=== PATIENT | female | born 1960 | race Caucasian/White ===

== ENCOUNTER 2017-05-27 15:42 | Inpatient (IN) | payer BC ==
[~2017-05-27] VITALS: Ht 152.4 cm; Wt 46.4 kg
--- NOTE | 2017-05-27 15:45 | NUR ---
LEFT FOOT INFECTION. SEND BY Jean HILLMAN
--- NOTE | 2017-05-27 16:26 | NUR ---
LAC #20 IV ACCESS. BLOOD SAMPLE COLLECTED SENT TO LAB
[2017-05-27 16:30] LABS: BASOPHILS # (AUTO) 0.2 /CMM (0.0-0.2); BASOPHILS % (AUTO) 2.5 % (0.0-2.0); EOSINOPHILS # (AUTO) 0.1 /CMM (0.0-0.7); EOSINOPHILS % (AUTO) 1.4 % (0.0-6.0); HEMATOCRIT 35 % (33-45); HEMOGLOBIN 11.8 g/dL (11.5-14.8); LYMPHOCYTES # (AUTO) 1.7 /CMM (0.8-4.8); MEAN CORPUSCULAR HEMOGLOBIN 32 PG (26.0-33.0); MEAN CORPUSCULAR HGB CONC 34 g/dl (31.0-36.0); MEAN CORPUSCULAR VOLUME 93 fL (82-100); MONOCYTES # (AUTO) 0.4 /CMM (0.1-1.30); MONOCYTES % (AUTO) 6.9 % (2.0-12.0); NEUTROPHILS # (AUTO) 3.8 /CMM (1.8-8.9); NEUTROPHILS % (AUTO) 62.2 % (43.0-81.0); PLATELET COUNT (AUTO) 440 /CMM (150-450); RDW COEFFICIENT OF VARIATION 11.6 (11.5-15.0); RED BLOOD CELL COUNT(AUTO) 3.71 MIL/uL (4.0-5.2); WHITE BLOOD COUNT (AUTO) 6.2 K/uL (4.3-11.0)
[2017-05-27] MEDS ORDERED: VANCOMYCIN 1 GM in IV D5W 250 ML IV ONE (16:30)
[2017-05-27] MEDS ORDERED: CEPH-570 PO (16:30)
[2017-05-27] MEDS ORDERED: HYDR-548 PO (16:30)
[2017-05-27] MEDS ORDERED: PIPERACILLIN /TAZOBACTAM 3.375 G in IV D5W 50 ML IV ONE (16:30)
--- NOTE | 2017-05-27 16:30 | NUR ---
CALLED FOR FOOD TRAY
[2017-05-27 16:38] LABS: CALCIUM, SERUM 9.2 mg/dL (8.5-10.1); CREATININE 0.7 mg/dL (0.6-1.3); POTASSIUM 3.4 mmol/L (3.5-5.1)
[2017-05-27 16:41] LABS: INR 0.88 (0.85-1.15)
--- NOTE | 2017-05-27 16:45 | NUR ---
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
--- NOTE | 2017-05-27 17:11 | NUR ---
PAGED EPIC FOR PANEL
--- NOTE | 2017-05-27 19:38 | NUR ---
CALLED NURSE SUP AGAIN FOR MEDSURG BED
--- NOTE | 2017-05-27 19:48 | NUR ---
[address] [facility]
--- NOTE | 2017-05-27 19:59 | NUR ---
report given to Jocelyn Valladares for cont of care
--- NOTE | 2017-05-27 20:06 | NUR ---
MS/RN NOTES RECEIVED PT. FROM ER VIA WHEELCHAIR. PT. IS AWAKE, ALERT AND ORIENTED X4. BREATHING EVEN AND UNLABORED ON ROOM AIR. NO SOB, RESPIRATORY DISTRESS OR COMPLAINTS OF PAIN NOTED AT THIS TIME. ORIENTED PT. TO ROOM. PT. WITH LEFT AC 20 GAUGE IV SALINE LOCK PRESENT, PATENT AND INTACT. BED LOCKED AND IN LOWEST POSITION, SIDE RAILS UP X2, CALL LIGHT WITHIN REACH, WILL CONTINUE TO MONITOR.
[2017-05-27 20:30] VITALS: BP 115/83
[2017-05-27] MEDS ORDERED: ZOLPIDEM TARTRATE 5 MG TABLET PO PRN (20:30)
[2017-05-27] MEDS ORDERED: Z GUARD REMEDY 2 OZ OINT TP PRN (20:30)
[2017-05-27] MEDS ORDERED: ONDANSETRON HCL/PF 4 MG/2 ML VIAL IVP PRN (20:30)
[2017-05-27] MEDS ORDERED: ACETAMINOPHEN 325 MG TABLET PO PRN (20:30)
[2017-05-27] MEDS ORDERED: MAGNESIUM HYDROXIDE 30 ML UDC PO PRN (20:30)
[2017-05-27] MEDS ORDERED: POTASSIUM CHLORIDE 20 MEQ TAB.PRT.SR PO ONE (20:30)
[2017-05-27] MEDS ORDERED: FEE PK DOSING 1 MIN EA MC ONE (20:57)
[2017-05-28] MEDS ORDERED: PIPERACILLIN /TAZOBACTAM 3.375 G VIAL IV ONE (00:21)
[2017-05-28] MEDS: PIPERACILLIN /TAZOBACTAM 3.375 G in IV D5W 50 ML IV SCH ×5 (00:32→23:30)
--- NOTE | 2017-05-28 06:14 | NUR ---
MS/RN NOTES PT. IS LYING IN BED RESTING. BREATHING EVEN AND UNLABORED ON ROOM AIR. NO SOB, RESPIRATORY DISTRESS OR COMPLAINTS OF PAIN NOTED AT THIS TIME. PT. WITH LEFT FOREARM 20 GAUGE IV SALINE LOCK PRESENT, PATENT AND INTACT. ALL PT. NEEDS MET. ALL DUE MEDICATIONS GIVEN. BED LOCKED AND IN LOWEST POSITION, SIDE RAILS UP X2, CALL LIGHT WITHIN REACH, WILL ENDORSE TO DAYSHIFT NURSE FOR CONTINUITY OF CARE.
[2017-05-28] MEDS: VANCOMYCIN 0.75 GM in IV D5W 250 ML IV SCH ×2 (06:41→19:02)
[2017-05-28 06:43] LABS: BASOPHILS % (AUTO) 0.5 % (0.0-2.0); EOSINOPHILS # (AUTO) 0.2 /CMM (0.0-0.7); EOSINOPHILS % (AUTO) 3.9 % (0.0-6.0); HEMATOCRIT 37 % (33-45); HEMOGLOBIN 12.4 g/dL (11.5-14.8); LYMPHOCYTES # (AUTO) 1.5 /CMM (0.8-4.8); LYMPHOCYTES % (AUTO) 31.6 % (20.0-44.0); MEAN CORPUSCULAR HEMOGLOBIN 33 PG (26.0-33.0); MEAN CORPUSCULAR HGB CONC 34 g/dl (31.0-36.0); MEAN CORPUSCULAR VOLUME 97 fL (82-100); MONOCYTES # (AUTO) 0.5 /CMM (0.1-1.30); MONOCYTES % (AUTO) 10.4 % (2.0-12.0); NEUTROPHILS # (AUTO) 2.6 /CMM (1.8-8.9); NEUTROPHILS % (AUTO) 53.6 % (43.0-81.0); PLATELET COUNT (AUTO) 366 /CMM (150-450); RDW COEFFICIENT OF VARIATION 12.7 (11.5-15.0); RED BLOOD CELL COUNT(AUTO) 3.76 MIL/uL (4.0-5.2); WHITE BLOOD COUNT (AUTO) 4.8 K/uL (4.3-11.0)
[2017-05-28 06:54] LABS: CALCIUM, SERUM 8.8 mg/dL (8.5-10.1); CREATININE 0.8 mg/dL (0.6-1.3); MAGNESIUM 2.2 mg/dL (1.8-2.4); POTASSIUM 4.2 mmol/L (3.5-5.1)
[2017-05-28 08:00] VITALS: BP 112/72
[2017-05-28 16:00] VITALS: BP 108/75
--- NOTE | 2017-05-28 18:00 | NUR ---
ARY CULVER,PITER IN TO SEE PT.WD CULTURE DONE OF LT. FOOT.CONSENT SIGNED FOR SURGERY TOMORROW.
[2017-05-28] MEDS: HYDROCODONE/APAP 5/325MG 1 EACH TABLET PO PRN ×2 (18:06→23:30)
--- NOTE | 2017-05-28 19:00 | NUR ---
MEDICATED X 1 FOR BACK PAIN,UP AND ABOUT IN RM. FREQ.FAMILY MEMBER IN TO VISIT.
--- NOTE | 2017-05-28 19:30 | NUR ---
MS RN OPENING NOTES: PATIENT IN BED, AOX4, ON ROOM AIR, BREATHING EVEN AND UNLABORED. APPEARS CALM AND IN NO DISTRESS. DENIES PAIN AT THIS TIME, BUT DOES COMPLAIN OF SORENESS OVER LFA PIV. NOTED PIV OVER LFA G 20 WITH SOME REDNESS AND ALSO APPEARS TO BEGIN TO SWELL, CURRENTLY INFUSING WITH VANCOMYCIN. STOPPED IV ATB FOR NOW. REMOVED PIV. PROVIDED FOR COMFORT AND SAFETY. BED IN LOWEST AND LOCKED POSITION, SIDERAILS UP X 3, CALL LIGHT WITHIN REACH. WILL CONT TO MONITOR.
[2017-05-28 20:00] VITALS: BP 111/64
--- NOTE | 2017-05-28 21:48 | NUR ---
RN NOTES: REINSERTED NEW IV LINE OVER LEFT WRIST G20, INTACT AND PATENT TO FLUSH, WITH GOOD BLOOD RETURN. CONTINUED WITH IV ATB.
--- NOTE | 2017-05-28 23:35 | NUR ---
RN NOTES: PT COMLPAINED OF PAIN OVER LEFT WRIST SCALED AT 7/10. PIV IS INTACT, WITH GOOD BLOOD RETURN. PATIENT DENIES WORSENING PAIN WHILE FLUSHED. NO SWELLING OR REDNESS NOTED. ADMINISTERED NORCO 5-325 MG PO AT THIS TIME. REMINDED PATIENT TO BE NPO POST MN. WILL CONT TO MONITOR.
[2017-05-29] MEDS: PIPERACILLIN /TAZOBACTAM 3.375 G in IV D5W 50 ML IV SCH ×3 (05:16→18:14)
[2017-05-29 06:32] LABS: CALCIUM, SERUM 8.6 mg/dL (8.5-10.1)
--- NOTE | 2017-05-29 06:54 | NUR ---
MS RN CLOSING NOTES: PATIENT IN BED, AOX4, ON ROOM AIR, BREATHING EVEN AND UNLABORED. APPEARS CALM AND IN NO DISTRESS. PIV OVER LEFT WRIST G22, INTACT AND PATENT TO FLUSH. PROVIDED FOR COMFORT AND SAFETY. BED IN LOWEST AND LOCKED POSITION, SIDERAILS UP X 3, CALL LIGHT WITHIN REACH. MAINTAINED ON NPO AFTER MIDNIGHT FOR DEBRIDEMENT OF WOUND AT LEFT FOOT AT 1330 PM TODAY. STILL AWAITING FOR RESULT OF VANCO TROUGH BEFORE GIVING VANCO 750 MG IV SCHEDULED AT 0600 AM. WILL ENDORSE TO AM RN FOR JENNA.
--- NOTE | 2017-05-29 07:28 | NUR ---
RN NOTES: VANCO TROUGH RESULT NOT AVAILABLE YET, ENDORSED VANCO IV TO LESLIE JIMENEZ.
--- NOTE | 2017-05-29 07:30 | NUR ---
RECEIVED PT. IN AM ALERT AND ORIENTED X4.NPO FOR SURGERY.
[2017-05-29] MEDS: VANCOMYCIN 0.75 GM in IV D5W 250 ML IV SCH ×2 (07:47→19:00)
[2017-05-29 08:00] VITALS: BP 109/69
--- NOTE | 2017-05-29 08:30 | NUR ---
C/O IV SITE SORENESS,REMOVED AND IV RESTART RT. FOREARM #22.PT.TOLERATED WELL.
--- NOTE | 2017-05-29 11:05 | NUR ---
WOUND CARE CONSULT: PT BEING TAKEN TO O.R. AT THIS TIME. WILL SEE PT NEEDED.
--- NOTE | 2017-05-29 11:10 | NUR ---
DR. ORTIZ SAW PT. SHE IS BEING WHEELED TO OR.
[2017-05-29] MEDS ORDERED: BACITRACIN 50000 UNITS/VIAL ONE (12:04)
--- NOTE | 2017-05-29 13:10 | NUR ---
RETURNED FROM SURGERY VS STABLE.FOOT SNUGLY WRAPPED AND DRY. NO DRAINAGE NOTED. FOOT WARM AND DENIES NUMBNESS OR TINGLING. INSTRUCTED TO CALL FOR BATHROOM NEEDS. POST-OP SHOE ORDERED AND PLACED. NO WT BEARING INSTRUCTIONS GIVEN TO PT.LT. FOOT ELEVATED ON PILLOW.IV SITE INTACT.
--- NOTE | 2017-05-29 13:40 | NUR ---
VANCE MCADAMS PT. WAS IN OR AT TIME MED WAS DUE.
[2017-05-29] MEDS: HYDROCODONE/APAP 5/325MG 1 EACH TABLET PO PRN (15:36)
--- NOTE | 2017-05-29 15:36 | NUR ---
MEDICATED FOR PAIN WITH NORCO MED.
[2017-05-29 16:00] VITALS: BP 106/58
[2017-05-29] MEDS ORDERED: HYDROCODONE/APAP 10/325MG 1 EA TABLET PO PRN (16:30)
--- NOTE | 2017-05-29 16:30 | NUR ---
PT. DECIDED SHE WANTS TO GO HOME.DR. ORTIZ CALLED. AWARE RN TO ADMINISTER ZOSYN AND VANCO PRIOR TO DC. TO ORDER ORAL ANTIBIOTICS FOR PT.FOR DISCHARGE.
[2017-05-29] MEDS ORDERED: LINE600T2 PO (17:47)
--- NOTE | 2017-05-29 19:00 | NUR ---
[facility] ADM. AT THIS TIME-PT. STILL PLANS TO GO HOME THIS YAIMA.DR. ORTIZ DROPPED OFF ZYVOX DC PRESCRIPTION.EXIT CARE STARTED.PT. DID VOID SINCE RETURN FROM OR. DENIES N/TINGLING TO LT. FOOT.
--- NOTE | 2017-05-29 19:40 | NUR ---
MS/RN OPENING NOTES PT RECEIVED AWAKE, SITTING UP IN BED. A/OX4. ON ROOM AIR, BREATHING EVEN AND UNLABORED. NO SOB OR PAIN NOTED AT THIS TIME. DRESSING TO LEFT FOOT IN PLACED WITH BOOT ON. NWB TO LEFT LEG. IV TO LEFT WRIST PATENT AND INTACT. VANCO CURRENTLY INFUSING. PT TO BE DISCHARGED ONCE VANCO IS COMPLETED. EXIT CARE PRINTED. PT AWARE OF DISCHARGE, FRIEND WILL BE PICKIING HER UP AROUND 2100. BED IN LOW/LOCKED POSITION WITH CALL LIGHT IN REACH. SIDE RAILS UPX2. WILL CONTINUE TO MONITOR
[2017-05-29 20:00] VITALS: BP 99/66
--- NOTE | 2017-05-29 21:20 | NUR ---
MS/RN NOTES PT LEFT UNIT VIA WHEELCHAIR ACCOMPANIED BY FRIEND AND TRANSFER AND PUMPHOUSE OPERATOR CHIEF. IV REMOVED. ID BANDS REMOVED. DISCHARGE PAPERWORK, HOME MEDICATIONS, ZYVOX PRESCRIPTION AND BELONGINGS ALL REVIEWED AND SENT HOME WITH PT. BOOT TO LEFT FOOT IN PLACE WITH DRESSING. ENCOURAGED NWB TO LEFT LEG. PT VERBALIZED UNDERSTANDING. PT LEFT IN STABLE CONDITION. NO S/S OF DISTRESS.
== END 2017-05-29 21:20 | disposition home or self-care (01) | DRG 988 ==
LOC: ER 15:46 → MED 19:51
PROVIDERS: ADMIT Nurse Practitioner Acute Care; ATTEND Nurse Practitioner Acute Care
PROC: 0QBP0ZZ Excision of Left Metatarsal, Open Approach (ICD-10-PCS; principal; 2017-05-29 11:30)
DX: L03.116 Cellulitis of left lower limb (principal); L02.612 Cutaneous abscess of left foot; L97.509 Non-pressure chronic ulcer of other part of unspecified foot with unspecified severity; S91.109A Unspecified open wound of unspecified toe(s) without damage to nail, initial encounter; Y92.009 Unspecified place in unspecified non-institutional (private) residence as the place of occurrence of the external cause; X58.XXXA Exposure to other specified factors, initial encounter
CPT/HCPCS: 36415; 71045-TC; 73630-TC; 80048-TC; 80061-TC; 80202-TC; 83605-TC; 83735-TC; 84100-TC; 85025-TC; 85730-TC; 86850-TC; 87040-TC; 87070-TC; 87075-TC; 87081-TC; 87186-TC; A4606; A6402; A6407; J2543; J3370; J7050; J7060; Z7610

== ENCOUNTER 2017-05-31 09:43 | Outpatient (CLI) | payer BC ==
[~2017-05-31 09:43] MED LIST: HYDR-548 PO; LINE600T2 PO
== END 2017-05-31 23:59 | disposition home health service (06) ==
LOC: WOU 09:43
PROVIDERS: ATTEND Podiatrist Foot & Ankle Surgery
DX: T81.4XXA Infection following a procedure, initial encounter (principal); L03.116 Cellulitis of left lower limb; B95.8 Unspecified staphylococcus as the cause of diseases classified elsewhere; R60.0 Localized edema; Z83.3 Family history of diabetes mellitus
CPT/HCPCS: A6402; A6407; G0463; J3490

== ENCOUNTER 2017-06-04 14:00 | Outpatient (CLI) | payer BC | END 2017-06-04 23:59 | disposition home health service (06) | LOC: WOU 14:00 | PROVIDERS: ATTEND Podiatrist Foot & Ankle Surgery | DX: T81.89XA Other complications of procedures, not elsewhere classified, initial encounter (principal); R60.0 Localized edema; M79.672 Pain in left foot | CPT/HCPCS: 11042; A6402 ×2; A6407 ==

== ENCOUNTER 2017-06-11 13:26 | Outpatient (CLI) | payer BC | END 2017-06-11 23:59 | disposition home health service (06) | LOC: WOU 13:26 | PROVIDERS: ATTEND Podiatrist Foot & Ankle Surgery | DX: T81.89XA Other complications of procedures, not elsewhere classified, initial encounter (principal); R60.0 Localized edema; L03.116 Cellulitis of left lower limb | CPT/HCPCS: 11043; A6402 ==

== ENCOUNTER 2017-07-02 14:20 | Outpatient (CLI) | payer BC | END 2017-07-02 23:59 | disposition home health service (06) | LOC: WOU 14:20 | PROVIDERS: ATTEND Podiatrist Foot & Ankle Surgery | DX: T81.89XA Other complications of procedures, not elsewhere classified, initial encounter (principal); L97.522 Non-pressure chronic ulcer of other part of left foot with fat layer exposed | CPT/HCPCS: 11042; A6402 ==

== ENCOUNTER 2017-07-09 14:10 | Outpatient (CLI) | payer BC | END 2017-07-09 23:59 | disposition home or self-care (01) | LOC: WOU 14:10 | PROVIDERS: ATTEND Podiatrist Foot & Ankle Surgery | DX: T81.89XA Other complications of procedures, not elsewhere classified, initial encounter (principal) | CPT/HCPCS: 11042; 87070-TC; 87075-TC; 87186-TC; A6402 ==

== ENCOUNTER 2017-07-16 14:30 | Outpatient (CLI) | payer BC | END 2017-07-16 23:59 | disposition home or self-care (01) | LOC: WOU 14:30 | PROVIDERS: ATTEND Podiatrist Foot & Ankle Surgery | DX: T81.89XA Other complications of procedures, not elsewhere classified, initial encounter (principal); L03.116 Cellulitis of left lower limb; B96.89 Other specified bacterial agents as the cause of diseases classified elsewhere; R60.9 Edema, unspecified | CPT/HCPCS: 11042; A6402 ==

== ENCOUNTER 2017-07-24 09:15 | Outpatient (CLI) | payer BC | END 2017-07-24 23:59 | disposition home or self-care (01) | LOC: WOU 09:15 | PROVIDERS: ATTEND Podiatrist Foot & Ankle Surgery | DX: T81.89XA Other complications of procedures, not elsewhere classified, initial encounter (principal); M20.40 Other hammer toe(s) (acquired), unspecified foot; R60.9 Edema, unspecified; M21.629 Bunionette of unspecified foot | CPT/HCPCS: 11042; A6402 ==

== ENCOUNTER 2017-08-06 11:15 | Outpatient (CLI) | payer BC | END 2017-08-06 23:59 | disposition home or self-care (01) | LOC: WOU 11:15 | PROVIDERS: ATTEND Podiatrist Foot & Ankle Surgery | DX: Z09 Encounter for follow-up examination after completed treatment for conditions other than malignant neoplasm (principal); L84 Corns and callosities; R60.0 Localized edema; M79.672 Pain in left foot | CPT/HCPCS: 99213; A6402; G0463 ==

== ENCOUNTER 2017-09-04 15:23 | Outpatient (CLI) | payer BC | END 2017-09-04 23:59 | disposition home or self-care (01) | LOC: WOU 15:23 | PROVIDERS: ATTEND Podiatrist Foot & Ankle Surgery | DX: L84 Corns and callosities (principal); M89.9 Disorder of bone, unspecified; M20.42 Other hammer toe(s) (acquired), left foot | CPT/HCPCS: G0463 ==

== ENCOUNTER → 2017-11-22 | Outpatient (CLI) | payer BC | END | disposition home or self-care (01) | LOC: WOU 08:00 | PROVIDERS: ATTEND Podiatrist Foot & Ankle Surgery | DX: L84 Corns and callosities (principal); R60.0 Localized edema | CPT/HCPCS: 99213; Z7610; G0463 ==

== ENCOUNTER 2018-03-14 08:20 | Outpatient (CLI) | payer BC ==
[~2018-03-14 08:20] MED LIST changes: +HYDR-4354 PO; -HYDR-548 PO
== END 2018-03-14 23:59 | disposition home or self-care (01) ==
LOC: WOU 08:20
PROVIDERS: ATTEND Podiatrist Foot & Ankle Surgery
DX: M20.5X2 Other deformities of toe(s) (acquired), left foot (principal); M89.9 Disorder of bone, unspecified; M79.675 Pain in left toe(s)
CPT/HCPCS: 99213; A6402; Z7610; G0463

== ENCOUNTER 2018-04-25 10:30 | Outpatient (CLI) | payer BC | END 2018-04-25 23:50 | disposition home or self-care (01) | LOC: WOU 10:30 | PROVIDERS: ATTEND Podiatrist Foot & Ankle Surgery | PROC: 0HBNXZZ Excision of Left Foot Skin, External Approach (ICD-10-PCS; principal; 2018-04-25) | DX: M21.622 Bunionette of left foot (principal); M21.621 Bunionette of right foot; M20.40 Other hammer toe(s) (acquired), unspecified foot; M79.675 Pain in left toe(s); L84 Corns and callosities | CPT/HCPCS: 11055; G0463 ==

== ENCOUNTER 2018-05-07 14:30 | Outpatient (CLI) | payer BC | END 2018-05-07 23:59 | disposition home or self-care (01) | LOC: WOU 14:30 | PROVIDERS: ATTEND Podiatrist Foot & Ankle Surgery | DX: L89.893 Pressure ulcer of other site, stage 3 (principal); M20.42 Other hammer toe(s) (acquired), left foot; R60.0 Localized edema; L03.032 Cellulitis of left toe | CPT/HCPCS: 11042; 87070; 87077; 87186 ×2; A6402 ==

== ENCOUNTER 2018-05-13 14:00 | Outpatient (CLI) | payer BC | END 2018-05-13 23:59 | disposition home or self-care (01) | LOC: WOU 14:00 | PROVIDERS: ATTEND Podiatrist Foot & Ankle Surgery | DX: L89.893 Pressure ulcer of other site, stage 3 (principal); L03.032 Cellulitis of left toe; M20.40 Other hammer toe(s) (acquired), unspecified foot; R60.9 Edema, unspecified | CPT/HCPCS: 11042; A6402 ==

== ENCOUNTER 2018-05-21 13:18 | Outpatient (CLI) | payer BC | END 2018-05-21 23:59 | disposition home or self-care (01) | LOC: WOU 13:18 | PROVIDERS: ATTEND Podiatrist Foot & Ankle Surgery | DX: L89.893 Pressure ulcer of other site, stage 3 (principal); L03.032 Cellulitis of left toe; R60.0 Localized edema; M20.40 Other hammer toe(s) (acquired), unspecified foot | CPT/HCPCS: 11042; A6197; A6402 ==

== ENCOUNTER 2018-09-16 11:11 | Outpatient (CLI) | payer BC | END 2018-09-16 23:59 | disposition home or self-care (01) | LOC: WOU 11:11 | PROVIDERS: ATTEND Podiatrist Foot & Ankle Surgery | DX: L84 Corns and callosities (principal); M20.42 Other hammer toe(s) (acquired), left foot; M77.52 Other enthesopathy of left foot and ankle | CPT/HCPCS: G0463 ==

== ENCOUNTER 2018-10-18 15:29 | Emergency (ER) | payer BC ==
[~2018-10-18] VITALS: Ht 152.4 cm; Wt 47.6 kg
[2018-10-18 15:36] VITALS: BP 126/98
--- NOTE | 2018-10-18 15:49 | NUR ---
PT WALKED INTO ROOM ACCOMPANIED BY FRIEND FOR C/C NEED FOR LEFT FOOT X-RAY
[2018-10-18] MEDS ORDERED: IBUPROFEN 600 MG TABLET PO ONE ×2 (16:00)
== END 2018-10-18 16:15 | disposition home or self-care (01) ==
LOC: ER 15:29
DX: L03.032 Cellulitis of left toe (principal)
CPT/HCPCS: 73660-TC

== ENCOUNTER 2018-11-11 11:30 | Outpatient (CLI) | payer BC | END 2018-11-11 23:59 | disposition home or self-care (01) | LOC: WOU 11:30 | PROVIDERS: ATTEND Podiatrist Foot & Ankle Surgery | DX: L84 Corns and callosities (principal); M20.42 Other hammer toe(s) (acquired), left foot; M79.672 Pain in left foot | CPT/HCPCS: G0463 ==

== ENCOUNTER 2018-11-19 13:30 | Outpatient (CLI) | payer BC | END 2018-11-19 23:59 | disposition home or self-care (01) | LOC: WOU 13:30 | PROVIDERS: ATTEND Podiatrist Foot & Ankle Surgery | DX: L84 Corns and callosities (principal); M20.42 Other hammer toe(s) (acquired), left foot | CPT/HCPCS: G0463 ==

== ENCOUNTER 2018-12-12 08:05 | Outpatient (CLI) | payer BC | END 2018-12-12 23:59 | disposition home or self-care (01) | LOC: WOU 08:05 | PROVIDERS: ATTEND Podiatrist Foot & Ankle Surgery | DX: M77.52 Other enthesopathy of left foot and ankle (principal); M20.42 Other hammer toe(s) (acquired), left foot; L84 Corns and callosities | CPT/HCPCS: G0463 ==

== ENCOUNTER 2019-01-06 11:05 | Outpatient (CLI) | payer BC | END 2019-01-06 23:59 | disposition home or self-care (01) | LOC: WOU 11:05 | PROVIDERS: ATTEND Podiatrist Foot & Ankle Surgery | DX: L84 Corns and callosities (principal); M20.42 Other hammer toe(s) (acquired), left foot | CPT/HCPCS: G0463 ==

== ENCOUNTER 2019-05-26 09:35 | Outpatient (CLI) | payer BC ==
[~2019-05-26 09:35] MED LIST changes: +LINE600T13 PO; -LINE600T2 PO
== END 2019-05-26 23:59 | disposition home or self-care (01) ==
LOC: WOU 09:35
PROVIDERS: ATTEND Podiatrist Foot & Ankle Surgery
DX: L84 Corns and callosities (principal); M79.672 Pain in left foot; M20.42 Other hammer toe(s) (acquired), left foot; M71.9 Bursopathy, unspecified
CPT/HCPCS: G0463

== ENCOUNTER 2021-02-07 11:30 | Outpatient (CLI) | payer SELFPAY | END 2021-02-07 23:59 | disposition home or self-care (01) | LOC: WOU 11:30 | PROVIDERS: ATTEND Podiatrist Foot & Ankle Surgery | DX: L84 Corns and callosities (principal); M20.42 Other hammer toe(s) (acquired), left foot; M79.672 Pain in left foot | CPT/HCPCS: G0463 ==

== ENCOUNTER 2021-02-14 11:22 | Outpatient (CLI) | payer SELFPAY | END 2021-02-14 23:59 | disposition home or self-care (01) | LOC: WOU 11:22 | PROVIDERS: ATTEND Podiatrist Foot & Ankle Surgery | DX: L84 Corns and callosities (principal); M20.42 Other hammer toe(s) (acquired), left foot; M79.672 Pain in left foot | CPT/HCPCS: G0463 ==